=== PATIENT | male | born 1930 | race Caucasian/White ===

== ENCOUNTER 2017-08-23 11:10 | Inpatient (IN) | payer MEDICARE ==
[~2017-08-23] VITALS: Ht 180.3 cm; Wt 94.8 kg
[2017-08-23] VITALS (14 sets, daily range): BP systolic 151–232; BP diastolic 82–123; PULSE 67–88; RESP 16–18; TEMP 97.7–98.4; O2SAT 95–100
[2017-08-23] MEDS ORDERED: SODIUM CHLORIDE 0.9% FLUSH 10 ML FLUSH IVF PRN (11:45)
[2017-08-23] MEDS ORDERED: NITROGLYCERIN 2% OINT 1 GM PACKET TOP ONE (11:45)
[2017-08-23] MEDS ORDERED: ASPIRIN 81 MG CHEW TAB CHEW ONE (11:45)
--- NOTE | 2017-08-23 11:48 | PD ---
HPI Chief Complaint: Respiratory Distress Time Seen by Provider: 11:38 Travel History International Travel<30 days: No Contact w/Intl Traveler<30days: No Traveled to known affect area: No History of Present Illness HPI 87-year-old male with history of hypercholesterolemia, hypertension, A. fib, currently only taking aspirin I choice because he reports that Coumadin did not work and he did not like Eliquis, presents emergency department for evaluation of shortness of breath. Patient states he initially started having an episode of shortness of breath a week ago. It seemed to be both at rest and with activity. It did subside. It occurred again throughout the week, he did go to his primary care provider. He was advised that he is lung sounds were clear and that he likely had something upper respiratory. He was advised to drink lemon water. However last evening he developed this shortness of breath again. It is associated by light substernal pressure pressure patient attributes this to him just feeling short of breath. He denies any significant pain. He has not been recently ill. He denies any history of PE or DVT. He has not had any recent travel. Patient does not currently have a military science teacher. He states he did have a stress test about 25 years ago when he had "something wrong with his heart." He has no other symptoms to report at this time. [facility] Past Medical History Atrial Fibrillation: Yes Hypertension: Yes Social History Alcohol Use: No Tobacco Use: No Substance Use: No Allergies-Medications (Allergen,Severity, Reaction): Coded Allergies: No Known Allergies (Unverified , 08/23/17) Review of Systems Except as stated in HPI: all other systems reviewed are Neg Physical Exam Narrative GENERAL: Well-nourished male patient, sitting up in bed, appears in no acute distress however patient does seem mildly short of breath when talking with me. SKIN: Focused skin assessment warm/dry. HEAD: Atraumatic. Normocephalic. EYES: Pupils equal and round. No scleral icterus. No injection or drainage. ENT: No nasal bleeding or discharge. Mucous membranes pink and moist. NECK: Trachea midline. No JVD. CARDIOVASCULAR: Regular rate and rhythm. RESPIRATORY: No accessory muscle use. Clear to auscultation. Breath sounds equal bilaterally. GASTROINTESTINAL: Abdomen soft, non-tender, nondistended. Hepatic and splenic margins not palpable. MUSCULOSKELETAL: No obvious deformities. No clubbing. No cyanosis. No edema. NEUROLOGICAL: Awake and alert. No obvious cranial nerve deficits. Motor grossly within normal limits. Normal speech. PSYCHIATRIC: Appropriate mood and affect; insight and judgment normal. Data Data Last Documented VS Vital Signs Date Time Temp Pulse Resp B/P (MAP) Pulse Ox O2 Delivery O2 Flow Rate FiO2 08/23/17 12:43 76 232/112 (152) 08/23/17 12:42 17 08/23/17 12:16 96 Room Air 08/23/17 11:30 2.00 08/23/17 11:26 98.4 Orders Orders Electrocardiogram (08/23/17 11:45) Ckmb (Isoenzyme) Profile (08/23/17 11:45) Complete Blood Count With Diff (08/23/17 11:45) Comprehensive Metabolic Panel (08/23/17 11:45) Magnesium (Mg) (08/23/17 11:45) Prothrombin Time / Inr (Pt) (08/23/17 11:45) Act Partial Throm Time (Ptt) (08/23/17 11:45) Troponin I (08/23/17 11:45) Ecg Monitoring (08/23/17 11:45) Bilateral Bp Monitoring (08/23/17 11:45) Iv Access Insert/Monitor (08/23/17 11:45) Oximetry (08/23/17 11:45) Oxygen Administration (08/23/17 11:45) Nitroglycerin 2% Oint (Nitroglycerin 2% (08/23/17 11:45) Sodium Chloride 0.9% Flush (Ns Flush) (08/23/17 11:45) Chest, Pa & Lat (08/23/17 11:45) Aspirin Chew (Aspirin Chew) (08/23/17 11:45) Heparin Inj (Heparin Inj) (08/23/17 18:45) Heparin Inj (Heparin Inj) (08/23/17 18:45) Heparin-D5w 25,000 U/250 Ml (Heparin-D5w (08/23/17 12:45) Cbc No Diff, Includes Plts (08/26/17 06:00) Act Partial Throm Time (Ptt) (08/23/17 19:39) Occult Blood (Hemoccult) Stool (08/23/17 12:39) Nitroglycerin-D5w 50 Mg/250 Ml (Nitrogly (08/23/17 12:45) Consult Cardiology (08/23/17 12:55) Labs Laboratory Tests Test 08/23/17 11:00 White Blood Count 7.2 TH/MM3 Red Blood Count 4.30 MIL/MM3 Hemoglobin 13.6 GM/DL Hematocrit 40.4 % Mean Corpuscular Volume 93.7 FL Mean Corpuscular Hemoglobin 31.6 PG Mean Corpuscular Hemoglobin Concent 33.8 % Red Cell Distribution Width 14.5 % Platelet Count 216 TH/MM3 Mean Platelet Volume 10.1 FL Neutrophils (%) (Auto) 71.1 % Lymphocytes (%) (Auto) 16.7 % Monocytes (%) (Auto) 9.6 % Eosinophils (%) (Auto) 2.2 % Basophils (%) (Auto) 0.4 % Neutrophils # (Auto) 5.1 TH/MM3 Lymphocytes # (Auto) 1.2 TH/MM3 Monocytes # (Auto) 0.7 TH/MM3 Eosinophils # (Auto) 0.2 TH/MM3 Basophils # (Auto) 0.0 TH/MM3 CBC Comment DIFF FINAL Differential Comment Prothrombin Time 10.7 SEC Prothromb Time International Ratio 1.1 RATIO Activated Partial Thromboplast Time 26.3 SEC Blood Urea Nitrogen 12 MG/DL Creatinine 0.78 MG/DL Random Glucose 93 MG/DL Total Protein 7.4 GM/DL Albumin 3.9 GM/DL Calcium Level 8.6 MG/DL Magnesium Level 2.6 MG/DL Alkaline Phosphatase 56 U/L Aspartate Amino Transf (AST/SGOT) 17 U/L Alanine Aminotransferase (ALT/SGPT) 21 U/L Total Bilirubin 0.6 MG/DL Sodium Level 139 MEQ/L Potassium Level 4.1 MEQ/L Chloride Level 104 MEQ/L Carbon Dioxide Level 25.7 MEQ/L Anion Gap 9 MEQ/L Estimat Glomerular Filtration Rate 115 ML/MIN Total Creatine Kinase 88 U/L Troponin I 0.16 NG/ML MDM Medical Decision Making Medical Screen Exam Complete: Yes Emergency Medical Condition: Yes Medical Record Reviewed: Yes Differential Diagnosis ACS versus CHF versus pneumonia versus bronchitis versus PE Narrative Course 87-year-old male presents emergency department for evaluation of a shortness of breath with a very light substernal chest pressure. Patient appears nontoxic. He is quite hypertensive here in the emergency department. 1 inch Nitropaste applied. EKG is complete and reviewed by my attending physician. Laboratory Tests Test 08/23/17 11:00 White Blood Count 7.2 TH/MM3 Red Blood Count 4.30 MIL/MM3 Hemoglobin 13.6 GM/DL Hematocrit 40.4 % Mean Corpuscular Volume 93.7 FL Mean Corpuscular Hemoglobin 31.6 PG Mean Corpuscular Hemoglobin Concent 33.8 % Red Cell Distribution Width 14.5 % Platelet Count 216 TH/MM3 Mean Platelet Volume 10.1 FL Neutrophils (%) (Auto) 71.1 % Lymphocytes (%) (Auto) 16.7 % Monocytes (%) (Auto) 9.6 % Eosinophils (%) (Auto) 2.2 % Basophils (%) (Auto) 0.4 % Neutrophils # (Auto) 5.1 TH/MM3 Lymphocytes # (Auto) 1.2 TH/MM3 Monocytes # (Auto) 0.7 TH/MM3 Eosinophils # (Auto) 0.2 TH/MM3 Basophils # (Auto) 0.0 TH/MM3 CBC Comment DIFF FINAL Differential Comment Prothrombin Time 10.7 SEC Prothromb Time International Ratio 1.1 RATIO Activated Partial Thromboplast Time 26.3 SEC Blood Urea Nitrogen 12 MG/DL Creatinine 0.78 MG/DL Random Glucose 93 MG/DL Total Protein 7.4 GM/DL Albumin 3.9 GM/DL Calcium Level 8.6 MG/DL Magnesium Level 2.6 MG/DL Alkaline Phosphatase 56 U/L Aspartate Amino Transf (AST/SGOT) 17 U/L Alanine Aminotransferase (ALT/SGPT) 21 U/L Total Bilirubin 0.6 MG/DL Sodium Level 139 MEQ/L Potassium Level 4.1 MEQ/L Chloride Level 104 MEQ/L Carbon Dioxide Level 25.7 MEQ/L Anion Gap 9 MEQ/L Estimat Glomerular Filtration Rate 115 ML/MIN Total Creatine Kinase 88 U/L Troponin I 0.16 NG/ML Last Impressions Chest X-Ray 08/23/17 1145 Signed Impressions: CONCLUSION: 1. Small left pleural effusion. 2. Cardiac megaly. 3. Minimal central pulmonary vascular congestion. 4. Degenerative changes throughout the thoracic spine. Troponin is elevated at 0.16. I discussed the patient with my attending who is also assessed the patient and reviewed the findings. Patient remains hypertensive with systolic greater than 220 and diastolic greater than 110. He states he is no longer having that pressure. We will start him on a nitro drip as well as heparin drip. Patient will be admitted to the CICU with the consult placed cardiology. Plan is discussed with the patient and he is in agreement with this plan of care. Diagnosis Primary Impression: NSTEMI (non-ST elevated myocardial infarction) Additional Impressions: Dyspnea Qualified Codes: R06.00 - Dyspnea, unspecified Hypertension Qualified Codes: I10 - Essential (primary) hypertension Admitting Information Admitting Physician Requests: Admit Condition: Stable Montserrat García Aug 23, 2017 11:48
[2017-08-23 12:09] LABS: AUTOMATED NEUTROPHIL # 5.1 TH/MM3 (1.8-7.7); BASOPHIL % 0.4 % (0.0-2.0); EOSINOPHIL # 0.2 TH/MM3 (0-0.4); EOSINOPHIL % 2.2 % (0.0-4.0); HEMATOCRIT 40.4 % (39.0-51.0); HEMOGLOBIN 13.6 GM/DL (13.0-17.0); LYMPH % 16.7 % (9.0-44.0); LYMPHOCYTE # 1.2 TH/MM3 (1.0-4.8); MEAN CELL VOLUME 93.7 FL (80.0-100.0); MEAN CORPUSCULAR HEMOGLOBIN 31.6 PG (27.0-34.0); MEAN CORPUSCULAR HGB CONC 33.8 % (32.0-36.0); MEAN PLATELET VOLUME 10.1 FL (7.0-11.0); MONO % 9.6 % (0.0-8.0); MONOCYTE # 0.7 TH/MM3 (0-0.9); NEUT % 71.1 % (16.0-70.0); PLATELET COUNT 216 TH/MM3 (150-450); RED CELL DISTRIBUTION WIDTH 14.5 % (11.6-17.2); WHITE BLOOD COUNT 7.2 TH/MM3 (4.0-11.0)
[2017-08-23 12:18] LABS: INTERNATIONAL NORMALIZED RATIO 1.1 RATIO; PROTHROMBIN TIME - PATIENT 10.7 SEC (9.8-11.6)
[2017-08-23 12:29] LABS: ALBUMIN 3.9 GM/DL (3.4-5.0); ALT (GPT) 21 U/L (12-78); AST (GOT) 17 U/L (15-37); BICARBONATE 25.7 MEQ/L (21.0-32.0); BLOOD UREA NITROGEN 12 MG/DL (7-18); CALCIUM 8.6 MG/DL (8.5-10.1); CHLORIDE 104 MEQ/L (98-107); CREATININE 0.78 MG/DL (0.60-1.30); GLOMERULAR FILTRATION RATE 115 ML/MIN (>89); GLUCOSE,RANDOM 93 MG/DL (74-106); MAGNESIUM 2.6 MG/DL (1.5-2.5); SODIUM (NA) 139 MEQ/L (136-145)
[2017-08-23 12:33] LABS: ALKALINE PHOSPHATASE 56 U/L (45-117); TOTAL BILIRUBIN ADULT 0.6 MG/DL (0.2-1.0); TOTAL PROTEIN 7.4 GM/DL (6.4-8.2); TROPONIN I 0.16 NG/ML (0.02-0.05)
[2017-08-23] MEDS ORDERED: NITROGLYCERIN-D5W 50 MG/250 ML 250 ML IV PRN (12:45)
--- NOTE | 2017-08-23 12:49 | PD ---
Physical Exam Date Seen by Provider: Aug 23, 2017 Narrative This patient presents with a chief complaint of dyspnea. He states that he had an episode of dyspnea a week ago but that it spontaneously improved. The dyspnea recurred last night. Data Data Last Documented VS Vital Signs Date Time Temp Pulse Resp B/P (MAP) Pulse Ox O2 Delivery O2 Flow Rate FiO2 08/23/17 12:16 77 17 232/112 (152) 96 Room Air 08/23/17 11:26 98.4 Orders Orders Electrocardiogram (08/23/17 11:45) Ckmb (Isoenzyme) Profile (08/23/17 11:45) Complete Blood Count With Diff (08/23/17 11:45) Comprehensive Metabolic Panel (08/23/17 11:45) Magnesium (Mg) (08/23/17 11:45) Prothrombin Time / Inr (Pt) (08/23/17 11:45) Act Partial Throm Time (Ptt) (08/23/17 11:45) Troponin I (08/23/17 11:45) Ecg Monitoring (08/23/17 11:45) Bilateral Bp Monitoring (08/23/17 11:45) Iv Access Insert/Monitor (08/23/17 11:45) Oximetry (08/23/17 11:45) Oxygen Administration (08/23/17 11:45) Nitroglycerin 2% Oint (Nitroglycerin 2% (08/23/17 11:45) Sodium Chloride 0.9% Flush (Ns Flush) (08/23/17 11:45) Chest, Pa & Lat (08/23/17 11:45) Aspirin Chew (Aspirin Chew) (08/23/17 11:45) Labs Laboratory Tests Test 08/23/17 11:00 White Blood Count 7.2 TH/MM3 Red Blood Count 4.30 MIL/MM3 Hemoglobin 13.6 GM/DL Hematocrit 40.4 % Mean Corpuscular Volume 93.7 FL Mean Corpuscular Hemoglobin 31.6 PG Mean Corpuscular Hemoglobin Concent 33.8 % Red Cell Distribution Width 14.5 % Platelet Count 216 TH/MM3 Mean Platelet Volume 10.1 FL Neutrophils (%) (Auto) 71.1 % Lymphocytes (%) (Auto) 16.7 % Monocytes (%) (Auto) 9.6 % Eosinophils (%) (Auto) 2.2 % Basophils (%) (Auto) 0.4 % Neutrophils # (Auto) 5.1 TH/MM3 Lymphocytes # (Auto) 1.2 TH/MM3 Monocytes # (Auto) 0.7 TH/MM3 Eosinophils # (Auto) 0.2 TH/MM3 Basophils # (Auto) 0.0 TH/MM3 CBC Comment DIFF FINAL Differential Comment Prothrombin Time 10.7 SEC Prothromb Time International Ratio 1.1 RATIO Activated Partial Thromboplast Time 26.3 SEC Blood Urea Nitrogen 12 MG/DL Creatinine 0.78 MG/DL Random Glucose 93 MG/DL Total Protein 7.4 GM/DL Albumin 3.9 GM/DL Calcium Level 8.6 MG/DL Magnesium Level 2.6 MG/DL Alkaline Phosphatase 56 U/L Aspartate Amino Transf (AST/SGOT) 17 U/L Alanine Aminotransferase (ALT/SGPT) 21 U/L Total Bilirubin 0.6 MG/DL Sodium Level 139 MEQ/L Potassium Level 4.1 MEQ/L Chloride Level 104 MEQ/L Carbon Dioxide Level 25.7 MEQ/L Anion Gap 9 MEQ/L Estimat Glomerular Filtration Rate 115 ML/MIN Total Creatine Kinase 88 U/L Troponin I 0.16 NG/ML MDM Supervised Visit with FLETCHER: Yes Interpretation(s) EKG shows a normal sinus rhythm with ischemic changes. Differential Diagnosis Differential diagnosis of dyspnea includes but is not limited to congestive heart failure, pneumonia, wheezing, pneumothorax, pulmonary embolism Narrative Course I, Dr. Page, have reviewed the advance practice practitioner's documentation and am in agreement, met with the patient face to face, made the diagnosis, and the medical decision making was done by me. *My assessment and Findings: Very pleasant gentleman who is awake and alert and does not appear to be in any acute distress. He is hypertensive with a diastolic of 112. CBC & BMP Diagram 08/23/17 11:00 Total Protein 7.4, Albumin 3.9, Calcium Level 8.6, Magnesium Level 2.6 H, Alkaline Phosphatase 56, Aspartate Amino Transf (AST/SGOT) 17, Alanine Aminotransferase (ALT/SGPT) 21, Total Bilirubin 0.6 Troponin is 0.16. A heparin bolus and drip has been ordered. He has already had aspirin. He has Nitropaste but that will be changed to a nitro drip. The nitro drip will be titrated for blood pressure. Cardiology will be consulted Please see Montserrat García, DNP's note for a more detailed H&P, final diagnosis and disposition Critical Care Narrative Aggregate critical care time was 30 minutes. Time to perform other separately billable procedures was not included in the critical care time. My time did not include minutes spent treating any other patients simultaneously or on activities that did not directly contribute to the patient's treatment. The services I provided to this patient were to treat and/or prevent clinically significant deterioration due to non-STEMI I provided critical care services requiring my management, as noted below: Chart data review, documentation time, medication orders and management, vital sign assessments/reviewing monitor data, ordering and reviewing lab tests, ordering and interpreting/reviewing x-rays and diagnostic studies, care of the patient and discussion of the patient with the admitting physicians Diagnosis Primary Impression: NSTEMI (non-ST elevated myocardial infarction) Admitting Information Admitting Physician Requests: Admit Condition: Stable Yumiko Page MD Aug 23, 2017 12:49
--- NOTE | 2017-08-23 12:56 | RADRPT ---
EXAM DATE: 08/23/2017 12:03 PM EDT AGE/SEX: 87 years / Male INDICATIONS: Short of breath. CLINICAL DATA: This is the patient's initial encounter. Patient reports that signs and symptoms have been present for 1 week and indicates a pain score of 0/10. MEDICAL/SURGICAL HISTORY: . atrial fibrillation. None. COMPARISON: No prior exams available for comparison. FINDINGS: A small left pleural effusion is noted. The heart is enlarged. Minimal central pulmonary vascular con gestion is noted. Degenerative changes are noted throughout the thoracic spine. CONCLUSION: 1. Small left pleural effusion. 2. Cardiac megaly. 3. Minimal central pulmonary vascular congestion. 4. Degenerative changes throughout the thoracic spine. Electronically signed by: Fabrice Cortez MD 08/23/2017 12:55 PM EDT
[2017-08-23] MEDS ORDERED: FUROSEMIDE 40 MG/4 ML VIAL IV PUSH ONE (13:15)
[2017-08-23] MEDS: HEPARIN-D5W 25,000 U/250 ML 250 ML IV PRN (13:20)
[2017-08-23] MEDS ORDERED: LABETALOL HCL 100 MG/20 ML VIAL IV PUSH STA (13:26)
--- NOTE | 2017-08-23 13:50 | HHI.HP ---
HPI Service [facility] Hospitalists Primary Care Physician Dr. Lima Flores Admission Diagnosis NSTEMI v hypertensive urgency Chief Complaint: SOB, chest pressure Travel History International Travel<30 Days: No Contact w/Intl Traveler <30 Da: No Traveled to Known Affected Are: No History of Present Illness Mr. Ramos is an 87 y/o male with HTN, hyperlipidemia, hypothyroidism and A. fib. He is currently only taking aspirin for his A. fib because he reports that Coumadin did not work and he did not like Eliquis so he stopped taking it. He presented to the ED at [facility] on 08/23/17 for evaluation of shortness of breath. Patient reports that he started having increased shortness of breath about a week ago. It seemed to be both with activity and at rest. He states that he called his PCP office and spoke with some one and he states that he was told to drink lemon water. It reportedly improved somewhat but then last night he felt that the SOB seemed to return and he had some associated light substernal chest pressure. He was unable to lie flat last night and he has noted some LE edema. He was seen at [facility] this morning and his BP was significantly elevated at 206/130, decreased O2 sats with activity to 88% and had a CXR which noted cardiac silhouette appears enlarged due to marked pectus excavatum deformity, atherosclerosis of the thoracic aorta, mild central vascular prominence, increased density in the retrocardiac space left side as well as small effusions , possibly suggestive of compressive atelectasis vs. pneumonitis at the left lung base vs. some mild interstitial edema and mild failure. Pt was recommended to go to the ED for further evaluation. In the ED his BP continued to be significantly elevated and he was started on a Nitro drip. His labs revealed an elevation in his troponin I of 0.16 and he was started on a Heparin bolus and drip. Cardiology has been consulted in the ED as well. He denies any significant pain. He has not been recently ill. He denies any history of PE or DVT. He has not had any recent travel. Pt reports that for the last year he has had been getting up about 4-5 times per night to urinate and having some dribbling at the end of urination. He diagnosed himself with an enlarged prostate and has been taking an OTC medication for the last few months which he thinks has helped. He has not discussed these issues with his PCP. Review of Systems Constitutional: DENIES: Fever, Chills Eyes: DENIES: Vision loss Ears, nose, mouth, throat: DENIES: Hearing loss Respiratory: COMPLAINS OF: Shortness of breath, DENIES: Cough Cardiovascular: COMPLAINS OF: Dyspnea on Exertion, Lower Extremity Edema, DENIES: Chest pain, Palpitations Past Family Social History Past Medical History HTN Hyperlipidemia Hypothyroidism Atrial fibrillation, paroxysmal Vitamin D deficiency Asthma 2D echo (01/13/2016): - Estimated EF 50-55% - LA [id number] dilated - Mild mitral valve regurg - Aortic valve sclerosis, [id number]-av-moavcwri aortic valve stenosis - Mild tricuspid valve regurg - Estimated PA pressure 38.9mmHg - Small pericardial effusion present, primarily located posteriorly Past Surgical History Inguinal hernia repair Nasal reconstruction in the s Reported Medications -Simvastatin 20 Mg PO DAILY -Nifedipine 30 Mg PO DAILY -Lisinopril 40 Mg PO DAILY -ASA 81 Mg PO BID Pt is prescribed Eliquis but is not taking it, took it for about 1 month, stopped it about 1 year ago Allergies: Coded Allergies: No Known Allergies (Unverified , 08/23/17) Family History Noncontributory Social History Hx of tobacco use, quit over 30 years ago, pt smoked for about 30 years. Occasional alcohol use, 1-2 glassed of wine with dinner daily. He drank more heavily in the past. Physical Exam Vital Signs Vital Signs Date Time Temp Pulse Resp B/P (MAP) Pulse Ox O2 Delivery O2 Flow Rate FiO2 08/23/17 13:22 77 17 203/94 (130) 100 Nasal Cannula 2.00 08/23/17 12:43 76 232/112 (152) 08/23/17 12:42 76 17 228/123 (158) 08/23/17 12:16 77 17 232/112 (152) 96 Room Air 08/23/17 11:30 100 Nasal Cannula 08/23/17 11:30 100 2.00 08/23/17 11:30 78 95 Room Air 08/23/17 11:26 98.4 76 17 228/123 (158) Physical Exam GENERAL: This is a well-nourished, well-developed patient, in no apparent distress. SKIN: No rashes, ecchymoses or lesions. Cool and dry. HEENT: Atraumatic. Normocephalic. No temporal or scalp tenderness. No scleral icterus. Airway patent. NECK: Trachea midline, supple, nontender. CARDIO: Regular, 3/6 systolic ejection murmur on LSB RESP: Bilateral basilar crackles ABD: Abdomen soft, non-tender, nondistended. No hepato-splenomegaly, or palpable masses. No guarding. EXT: Bilateral LE pitting edema to the knees. NEURO: Awake and alert. Motor and sensory grossly within normal limits. Normal speech. Laboratory Laboratory Tests Test 08/23/17 11:00 White Blood Count 7.2 Red Blood Count 4.30 Hemoglobin 13.6 Hematocrit 40.4 Mean Corpuscular Volume 93.7 Mean Corpuscular Hemoglobin 31.6 Mean Corpuscular Hemoglobin Concent 33.8 Red Cell Distribution Width 14.5 Platelet Count 216 Mean Platelet Volume 10.1 Neutrophils (%) (Auto) 71.1 Lymphocytes (%) (Auto) 16.7 Monocytes (%) (Auto) 9.6 Eosinophils (%) (Auto) 2.2 Basophils (%) (Auto) 0.4 Neutrophils # (Auto) 5.1 Lymphocytes # (Auto) 1.2 Monocytes # (Auto) 0.7 Eosinophils # (Auto) 0.2 Basophils # (Auto) 0.0 CBC Comment DIFF FINAL Differential Comment Prothrombin Time 10.7 Prothromb Time International Ratio 1.1 Activated Partial Thromboplast Time 26.3 Blood Urea Nitrogen 12 Creatinine 0.78 Random Glucose 93 Total Protein 7.4 Albumin 3.9 Calcium Level 8.6 Magnesium Level 2.6 Alkaline Phosphatase 56 Aspartate Amino Transf (AST/SGOT) 17 Alanine Aminotransferase (ALT/SGPT) 21 Total Bilirubin 0.6 Sodium Level 139 Potassium Level 4.1 Chloride Level 104 Carbon Dioxide Level 25.7 Anion Gap 9 Estimat Glomerular Filtration Rate 115 Total Creatine Kinase 88 Troponin I 0.16 Result Diagram: 08/23/17 1100 08/23/17 1100 Imaging Last Impressions Chest X-Ray 08/23/17 1145 Signed Impressions: CONCLUSION: 1. Small left pleural effusion. 2. Cardiac megaly. 3. Minimal central pulmonary vascular congestion. 4. Degenerative changes throughout the thoracic spine. Caprini VTE Risk Assessment Caprini VTE Risk Assessment: Mod/High Risk (score >= 2) Caprini Risk Assessment Model Point Value = 1 Point Value = 2 Point Value = 3 Point Value = 5 Age 41-60 Minor surgery BMI > 25 kg/m2 Swollen legs Varicose veins or History of unexplained or recurrent spontaneous Oral contraceptives or hormone replacement Sepsis (< 1 month) Serious lung disease, including pneumonia (< 1 month) Abnormal pulmonary function Acute myocardial infarction Congestive heart failure (< 1 month) History of inflammatory bowel disease Medical patient at bed rest Age 61-74 Arthroscopic surgery Major open surgery (> 45 min) Laparoscopic surgery (> 45 min) Malignancy Confined to bed (> 72 hours) Immobilizing plaster cast Central venous access Age >= 75 History of VTE Family history of VTE Factor V Leiden Prothrombin [id number] Lupus anticoagulant Anticardiolipin antibodies Elevated serum homocysteine Heparin-induced thrombocytopenia Other congenital or acquired thrombophilia Stroke (< 1 month) Elective arthroplasty Hip, pelvis, or leg fracture Acute spinal cord injury (< 1 month) Prophylaxis Regimen Total Risk Factor Score Risk Level Prophylaxis Regimen 0-1 Low Early ambulation 2 Moderate Order ONE of the following: *Sequential Compression Device (SCD) *Heparin 5000 units SQ BID 3-4 Higher Order ONE of the following medications: *Heparin 5000 units SQ TID *Enoxaparin/Lovenox 40 mg SQ daily (WT < 150 kg, CrCl > 30 mL/min) *Enoxaparin/Lovenox 30 mg SQ daily (WT < 150 kg, CrCl > 10-29 mL/min) *Enoxaparin/Lovenox 30 mg SQ BID (WT < 150 kg, CrCl > 30 mL/min) AND/OR *Sequential Compression Device (SCD) 5 or more Highest Order ONE of the following medications: *Heparin 5000 units SQ TID (Preferred with Epidurals) *Enoxaparin/Lovenox 40 mg SQ daily (WT < 150 kg, CrCl > 30 mL/min) *Enoxaparin/Lovenox 30 mg SQ daily (WT < 150 kg, CrCl > 10-29 mL/min) *Enoxaparin/Lovenox 30 mg SQ BID (WT < 150 kg, CrCl > 30 mL/min) AND *Sequential Compression Device (SCD) Assessment and Plan Problem List: (1) NSTEMI (non-ST elevated myocardial infarction) ICD Codes: I21.4 - Non-ST elevation (NSTEMI) myocardial infarction Status: Acute Plan: NSTEMI SOB with LE edema, likely secondary to CHF HTN, poorly controlled - Pt is an 87 y/o male with HTN, hyperlipidemia, hypothyroidism and paroxysmal A. fib. - He presented to the ED at [facility] on 08/23/17 for evaluation of shortness of breath. Patient reports that he started having increased shortness of breath about a week ago. Last night he felt that the SOB seemed to worsen and he had some associated light substernal chest pressure. He was unable to lie flat last night and he has noted some LE edema. He was seen at [facility] this morning and his BP was significantly elevated at 206/130, decreased O2 sats with activity to 88% and had a CXR which noted cardiac silhouette appears enlarged due to marked pectus excavatum deformity, atherosclerosis of the thoracic aorta, mild central vascular prominence, increased density in the retrocardiac space left side as well as small effusions, possibly suggestive of compressive atelectasis vs. pneumonitis at the left lung base vs. some mild interstitial edema and mild failure. Pt was recommended to go to the ED for further evaluation. - In the ED his BP continued to be significantly elevated and he was started on a Nitro drip. Pts BP currently is 229/107 - His labs revealed an elevation in his troponin I of 0.16 and he was started on a Heparin bolus and drip. - Cardiology has been consulted - Trend CE and EKGs - Check 2D echo - Telemetry - Pt has been seen by [facility] and has been started on Lasix 40mg Q8H, Coreg 6.25 Q12H, Imdur 30mg BID Lisinopril 40mg daily, ASA 81 mg daily and Lipitor - Pt to be weaned off the Nitro drip as BP allows - Supportive care - Pt is on Heparin gtt, labs ordered per protocol Paroxysmal atrial fibrillation - Pt has been taking on ASA as an outpt for anticoagulation - In the past he was on Coumadin and Elquis which he stopped himself. - Currently in NSR with occasional PVCs on telemetry - Cont. telemetry monitoring - Cont. ASA Hyperlipidemia - Cont. statin (2) Dyspnea ICD Codes: R06.00 - Dyspnea, unspecified Status: Acute (3) Paroxysmal A-fib ICD Codes: I48.0 - Paroxysmal atrial fibrillation (4) HTN (hypertension) ICD Codes: I10 - Essential (primary) hypertension (5) Hyperlipidemia ICD Codes: E78.5 - Hyperlipidemia, unspecified Physician Certification 2 Midnight Certification Type: Admission for Inpatient Services Order for Inpatient Services The services are ordered in accordance with Medicare regulations or non- Medicare payer requirements, as applicable. In the case of services not specified as inpatient-only, they are appropriately provided as inpatient services in accordance with the 2-midnight benchmark. Estimated LOS (days): 3 3 days is the estimated time the patient will need to remain in the hospital, assuming treatment plan goals are met and no additional complications. Post-Hospital Plan: Not yet determined Problem Qualifiers (1) Dyspnea: Qualified Codes: R06.00 - Dyspnea, unspecified Christine Marroquin Aug 23, 2017 13:50
--- NOTE | 2017-08-23 14:12 | PD.CONS ---
HPI Consult Requested By Dr Yumiko Page MD Reason for Consult dyspnea, elevated troponin Primary Care Physician Liam Flores MD History of Present Illness 87 yo gentleman with history of PAF not on chronic anticoagulation therapy, HTN , HLD presents to ER with 1 week of intermittent dyspnea. No chest pain, palpitations, syncope or sensation of rapid HR. Noted increasing LE edema and orthopnea without PND. He is active at baseline, completes a 1 hour walk most days but hasn't been able to this past week due to dyspnea. He does not check his ambulatory vitals. When he presented to the ER, BP noted at 232/112 with HR 77 in NSR. ECG is nonischemic. CXR shows pulmonary vascular congestion. Labs reveal mildly elevated troponin of 0.16 with CK 88. Cr 0.78, K+4.1. He was administered lasix 40mg iv x 1, ASA 81mg, NTG paste 1", and started on heparin gtt per [facility] protocol. Current BP 203/94, HR 75bpm. Intermittent rare PVCs on tele. Review of Systems 10-pt ros negative other than noted in HPI Past Family Social History Allergies: Coded Allergies: No Known Allergies (Unverified , 08/23/17) Past Medical History HTN HLD PAF Past Surgical History denies Active Ordered Medications Current Medications Medications (Trade) Dose Ordered Sig/Arnoldo Route Start Time Stop Time Status Last Admin (NS Flush) 2 ml UNSCH PRN IVF 08/23/17 11:45 (Heparin Inj) 5,000 units UNSCH PRN IV 08/23/17 18:45 (Heparin Inj) 2,500 units UNSCH PRN IV 08/23/17 18:45 Heparin Sodium/ Dextrose 250 ml @ 10 mls/hr TITRATE PRN IV 08/23/17 12:45 08/23/17 13:20 Nitroglycerin/ Dextrose 250 ml @ 1.5 mls/hr TITRATE PRN IV 08/23/17 12:45 Family History noncontributory Social History former smoker age 21 to mid-30s. exercises almost daily. no alcohol Physical Exam Vital Signs Vital Signs Date Time Temp Pulse Resp B/P (MAP) Pulse Ox O2 Delivery O2 Flow Rate FiO2 08/23/17 13:22 77 17 203/94 (130) 100 Nasal Cannula 2.00 08/23/17 12:43 76 232/112 (152) 08/23/17 12:42 76 17 228/123 (158) 08/23/17 12:16 77 17 232/112 (152) 96 Room Air 08/23/17 11:30 100 Nasal Cannula 08/23/17 11:30 100 2.00 08/23/17 11:30 78 95 Room Air 08/23/17 11:26 98.4 76 17 228/123 (158) Physical Exam Gen: AOx3 pleasant and comfortable HEENT: NCAT, no conjuntival injection Neck: supple, JVP elevated to 12 cm CV: regular rate and rhythm, +S1/S2, 1/6 fabrizio Chest: bibasilar faint crackles, no wheeze or rhonci Abd: soft, nontender Ext: 2+ bl LE edema, no varicose veins Neuro: nonfocal. moves all extremities Laboratory Laboratory Tests Test 08/23/17 11:00 White Blood Count 7.2 Red Blood Count 4.30 Hemoglobin 13.6 Hematocrit 40.4 Mean Corpuscular Volume 93.7 Mean Corpuscular Hemoglobin 31.6 Mean Corpuscular Hemoglobin Concent 33.8 Red Cell Distribution Width 14.5 Platelet Count 216 Mean Platelet Volume 10.1 Neutrophils (%) (Auto) 71.1 Lymphocytes (%) (Auto) 16.7 Monocytes (%) (Auto) 9.6 Eosinophils (%) (Auto) 2.2 Basophils (%) (Auto) 0.4 Neutrophils # (Auto) 5.1 Lymphocytes # (Auto) 1.2 Monocytes # (Auto) 0.7 Eosinophils # (Auto) 0.2 Basophils # (Auto) 0.0 CBC Comment DIFF FINAL Differential Comment Prothrombin Time 10.7 Prothromb Time International Ratio 1.1 Activated Partial Thromboplast Time 26.3 Blood Urea Nitrogen 12 Creatinine 0.78 Random Glucose 93 Total Protein 7.4 Albumin 3.9 Calcium Level 8.6 Magnesium Level 2.6 Alkaline Phosphatase 56 Aspartate Amino Transf (AST/SGOT) 17 Alanine Aminotransferase (ALT/SGPT) 21 Total Bilirubin 0.6 Sodium Level 139 Potassium Level 4.1 Chloride Level 104 Carbon Dioxide Level 25.7 Anion Gap 9 Estimat Glomerular Filtration Rate 115 Total Creatine Kinase 88 Troponin I 0.16 Result Diagram: 08/23/17 1100 08/23/17 1100 Imaging Last Impressions Chest X-Ray 08/23/17 1145 Signed Impressions: CONCLUSION: 1. Small left pleural effusion. 2. Cardiac megaly. 3. Minimal central pulmonary vascular congestion. 4. Degenerative changes throughout the thoracic spine. Assessment and Plan Assessment and Plan 87 yo gentleman with HTN, HLD, PAF presents with 1 week of dyspnea, LE edema, orthopnea. Acute decompensated CHF, no EF on record Elevated troponin: NSTEMI type I vs type II demand ischemia with HTN emergency Hypertension Hyperlipidemia: (05/23/17: TCC 143, TG 131, HDL 43, LDL 74 on Simvastatin 20mg daily) Hx of PAF in NSR, patient previously declined chronic anticoagulation therapy and stopped coumadin then eliquis. Rec: -lasix 40iv q8hrs. -maintain K+ > 4, mg >2 -ASA 81 mg daily, Lisinopril 40mg daily, Simvastatin 20mg daily -Labetalol 10mg IV x 1 now in ER, then start coreg 6.25mg bid, Imdur 30mg bid with holding parameters then d/c Nitro paste tomorrow. -continue to trend cardiac biomarkers to peak -continue heparin gtt -NPO after MN for possible LHC tomorrow. -check echocardiogram (Home meds from [facility] EMR: Lisinopril 40mg daily, Nifedipine ER 30mg daily, Simvastatin 20mg daily, Eliquis 5mg bid (patient denies taking), multiple supplements.) Alejandro Flores DO Aug 23, 2017 14:12
--- NOTE | 2017-08-23 15:41 | EKG ---
Date Performed: 08/23/2017 Time Performed: 11:10:11 PTAGE: 87 years EKG: POSSIBLE ATRIAL FIBRILLATION NONSPECIFIC ST & T-WAVE ABNORMALITY ABNORMAL RHYTHM ECG NO PREVIOUS TRACING DOCTOR: Milind Park Interpretating Date/Time 08/23/2017 15:39:57
[2017-08-23] MEDS: LISINOPRIL 20 MG TAB PO SCH (16:19)
[2017-08-23] MEDS ORDERED: cloNIDine HCL 0.1 MG TAB PO PRN (17:15)
[2017-08-23 17:58] LABS: TROPONIN I 0.19 NG/ML (0.02-0.05)
[2017-08-23] MEDS ORDERED: HEPARIN SODIUM - IV 10,000 UNITS/10 ML VIAL IV PRN ×2 (18:45)
[2017-08-23] MEDS ORDERED: VITA-142 PO (19:18)
[2017-08-23] MEDS ORDERED: TURM500C3 PO (19:18)
[2017-08-23] MEDS ORDERED: LUTE20CA PO (19:18)
[2017-08-23] MEDS ORDERED: BIOT5TAB PO (19:18)
[2017-08-23] MEDS ORDERED: GARL1TAB PO (19:18)
[2017-08-23] MEDS ORDERED: ECHI400C2 PO (19:18)
[2017-08-23] MEDS ORDERED: SAWCAP2 PO (19:18)
[2017-08-23] MEDS ORDERED: CITR500T PO (19:18)
[2017-08-23] MEDS ORDERED: IODI150T PO (19:18)
[2017-08-23] MEDS ORDERED: NETTLE LEAF PO (19:18)
[2017-08-23] MEDS ORDERED: FOLI400T PO (19:18)
[2017-08-23] MEDS ORDERED: FERR325T18 PO (19:18)
[2017-08-23] MEDS ORDERED: VITA500T4 PO (19:18)
[2017-08-23] MEDS ORDERED: APIX5TAB PO (19:18)
[2017-08-23] MEDS ORDERED: OMEG100046 PO (19:18)
[2017-08-23] MEDS ORDERED: COMPTAB PO (19:18)
[2017-08-23] MEDS ORDERED: LISI40TA PO (19:18)
[2017-08-23] MEDS ORDERED: ZOCO20TA PO (19:18)
[2017-08-23] MEDS ORDERED: NIFE30TA61 PO (19:18)
[2017-08-23] MEDS ORDERED: CHOL5000 PO (19:18)
[2017-08-23] MEDS ORDERED: CRAN1CAP11 PO (19:18)
[2017-08-23] MEDS ORDERED: MAGN200T PO (19:18)
--- NOTE | 2017-08-23 20:53 | EKG ---
Date Performed: 08/23/2017 Time Performed: 15:20:10 PTAGE: 87 years EKG: ATRIAL FIBRILLATION LEFT AXIS DEVIATION ST/T-WAVE ABNORMALITY, CONSIDER LATERAL ISCHEMIA AB NORMAL ECG PREVIOUS TRACING : 08/23/2017 11.10 No significant change from previous tracing noted. DOCTOR: Milind Park Interpretating Date/Time 08/23/2017 20:52:26
[2017-08-23 21:40] LABS: TROPONIN I 0.17 NG/ML (0.02-0.05)
[2017-08-23] MEDS: CARVEDILOL 6.25 MG TAB PO SCH (21:50)
[2017-08-23] MEDS: ISOSORBIDE MONONITRATE 30 MG CR TAB (IMDUR) PO SCH (21:51)
[2017-08-23] MEDS: FUROSEMIDE 40 MG/4 ML VIAL IV PUSH SCH (21:53)
[2017-08-24] VITALS (26 sets, daily range): BP systolic 132–176; BP diastolic 75–92; PULSE 60–80; RESP 16–18; TEMP 97.6–97.9; O2SAT 93–98
[2017-08-24 05:04] LABS: AUTOMATED NEUTROPHIL # 6.7 TH/MM3 (1.8-7.7); BASOPHIL % 0.3 % (0.0-2.0); EOSINOPHIL # 0.2 TH/MM3 (0-0.4); EOSINOPHIL % 2.6 % (0.0-4.0); HEMATOCRIT 37.5 % (39.0-51.0); HEMOGLOBIN 12.4 GM/DL (13.0-17.0); LYMPH % 13.3 % (9.0-44.0); LYMPHOCYTE # 1.2 TH/MM3 (1.0-4.8); MEAN CELL VOLUME 94.4 FL (80.0-100.0); MEAN CORPUSCULAR HEMOGLOBIN 31.3 PG (27.0-34.0); MEAN CORPUSCULAR HGB CONC 33.2 % (32.0-36.0); MEAN PLATELET VOLUME 9.7 FL (7.0-11.0); MONO % 9.5 % (0.0-8.0); MONOCYTE # 0.9 TH/MM3 (0-0.9); NEUT % 74.3 % (16.0-70.0); PLATELET COUNT 194 TH/MM3 (150-450); RED BLOOD COUNT 3.97 MIL/MM3 (4.50-5.90); RED CELL DISTRIBUTION WIDTH 14.5 % (11.6-17.2)
[2017-08-24 05:31] LABS: ALBUMIN 3.3 GM/DL (3.4-5.0); ALKALINE PHOSPHATASE 50 U/L (45-117); ALT (GPT) 21 U/L (12-78); AST (GOT) 14 U/L (15-37); BICARBONATE 28.7 MEQ/L (21.0-32.0); BLOOD UREA NITROGEN 17 MG/DL (7-18); CALCIUM 8.2 MG/DL (8.5-10.1); CHLORIDE 102 MEQ/L (98-107); CHOLESTEROL 115 MG/DL (120-200); CHOLESTEROL/ HDL RATIO 2.39 RATIO; CREATININE 0.89 MG/DL (0.60-1.30); GLOMERULAR FILTRATION RATE 81 ML/MIN (>89); GLUCOSE,RANDOM 107 MG/DL (74-106); HDL CHOLESTEROL 48.1 MG/DL (40.0-60.0); LDL CHOLESTEROL 53 MG/DL (0-99); SODIUM (NA) 141 MEQ/L (136-145); TOTAL BILIRUBIN ADULT 0.6 MG/DL (0.2-1.0); TOTAL PROTEIN 6.2 GM/DL (6.4-8.2); TRIGLYCERIDES 70 MG/DL (42-150)
[2017-08-24] MEDS ORDERED: POTASSIUM CHLOR 20 MEQ PREMIX 100 ML IV SCH (06:15)
[2017-08-24] MEDS: HEPARIN-D5W 25,000 U/250 ML 250 ML IV PRN (06:39)
[2017-08-24] MEDS: ISOSORBIDE MONONITRATE 30 MG CR TAB (IMDUR) PO SCH ×2 (06:42→21:16)
[2017-08-24] MEDS: FUROSEMIDE 40 MG/4 ML VIAL IV PUSH SCH ×3 (06:42→21:16)
--- NOTE | 2017-08-24 08:23 | PD.CARD.PN ---
Subjective Subjective Remarks improved breathing, "feeling dried out", diuresing well. no chest pain. troponin levels stable. (Karmen Crawford) Subjective Remarks continue diuresis IV q8 symptoms improved [facility] today await echo results cont ACEi and BB (Minor,Tyson Bell MD) Objective Medications Current Medications Medications (Trade) Dose Ordered Sig/Arnoldo Route Start Time Stop Time Status Last Admin (NS Flush) 2 ml UNSCH PRN IVF 08/23/17 11:45 (Heparin Inj) 5,000 units UNSCH PRN IV 08/23/17 18:45 (Heparin Inj) 2,500 units UNSCH PRN IV 08/23/17 18:45 08/23/17 21:53 Heparin Sodium/ Dextrose 250 ml @ 10 mls/hr TITRATE PRN IV 08/23/17 12:45 08/24/17 06:39 Nitroglycerin/ Dextrose 250 ml @ 1.5 mls/hr TITRATE PRN IV 08/23/17 12:45 (Coreg) 6.25 mg Q12HR PO 08/23/17 21:00 08/23/17 21:50 (Prinivil) 40 mg DAILY PO 08/23/17 14:15 08/23/17 16:19 (Imdur) 30 mg BID@0700,2100 PO 08/23/17 21:00 08/24/17 06:42 (Lasix Inj) 40 mg Q8HR IV PUSH 08/23/17 22:00 08/24/17 06:42 (Ecotrin Ec) 81 mg DAILY PO 08/24/17 09:00 (Lipitor) 20 mg DAILY PO 08/24/17 09:00 (Catapres) 0.1 mg Q4H PRN PO 08/23/17 17:15 (KCl) 20 meq Q12HR PO 08/24/17 21:00 UNV (KCl) 40 meq ONCE ONCE PO 08/24/17 08:15 08/24/17 08:16 UNV Vital Signs / I&O Vital Signs Date Time Temp Pulse Resp B/P (MAP) Pulse Ox O2 Delivery O2 Flow Rate FiO2 08/24/17 06:00 62 18 98 08/24/17 05:00 64 16 96 08/24/17 04:00 60 16 98 08/24/17 02:00 62 16 96 08/24/17 00:00 72 08/24/17 00:00 74 08/24/17 00:00 66 16 137/84 (101) 96 08/23/17 23:00 80 08/23/17 22:00 72 08/23/17 21:00 88 08/23/17 20:00 97.7 83 16 161/98 (119) 96 08/23/17 19:59 08/23/17 19:22 67 18 151/91 (111) 95 Room Air 08/23/17 18:28 73 17 182/82 (115) 100 Room Air 08/23/17 16:10 74 17 176/92 (120) 100 Room Air 08/23/17 14:20 74 18 208/111 (143) 100 Nasal Cannula 2.00 08/23/17 13:22 77 17 203/94 (130) 100 Nasal Cannula 2.00 08/23/17 12:43 76 232/112 (152) 08/23/17 12:42 76 17 228/123 (158) 08/23/17 12:16 77 17 232/112 (152) 96 Room Air 08/23/17 11:30 100 Nasal Cannula 08/23/17 11:30 100 2.00 08/23/17 11:30 78 95 Room Air 08/23/17 11:26 98.4 76 17 228/123 (158) I/O 08/23/17 08/23/17 08/23/17 08/24/17 08/24/17 08/24/17 07:00 15:00 23:00 07:00 15:00 23:00 Intake Total 120 ml 480 ml Output Total 1500 ml 1275 ml Balance -1380 ml -795 ml Intake Oral 120 ml 480 ml Output Urine Total 1500 ml 1275 ml # Voids 1 Physical Exam GENERAL: SKIN: Warm and dry. HEAD: Atraumatic. Normocephalic. EYES: Pupils equal and round. No scleral icterus. No injection or drainage. ENT: No nasal bleeding or discharge. NECK: Trachea midline. No JVD. CARDIOVASCULAR: irregularly irregular rate and rhythm, II/ systolic murmur RESPIRATORY: No accessory muscle use. Clear to auscultation. Breath sounds equal bilaterally. GASTROINTESTINAL: Abdomen soft, non-tender, nondistended. MUSCULOSKELETAL: Extremities without clubbing, cyanosis, or edema. No obvious deformities. NEUROLOGICAL: Awake and alert. No obvious cranial nerve deficits. Normal speech. PSYCHIATRIC: Appropriate mood and affect; insight and judgment normal. Laboratory Laboratory Tests Test 08/23/17 11:00 08/23/17 17:10 08/23/17 19:23 08/23/17 21:08 White Blood Count 7.2 TH/MM3 Red Blood Count 4.30 MIL/MM3 Hemoglobin 13.6 GM/DL Hematocrit 40.4 % Mean Corpuscular Volume 93.7 FL Mean Corpuscular Hemoglobin 31.6 PG Mean Corpuscular Hemoglobin Concent 33.8 % Red Cell Distribution Width 14.5 % Platelet Count 216 TH/MM3 Mean Platelet Volume 10.1 FL Neutrophils (%) (Auto) 71.1 % Lymphocytes (%) (Auto) 16.7 % Monocytes (%) (Auto) 9.6 % Eosinophils (%) (Auto) 2.2 % Basophils (%) (Auto) 0.4 % Neutrophils # (Auto) 5.1 TH/MM3 Lymphocytes # (Auto) 1.2 TH/MM3 Monocytes # (Auto) 0.7 TH/MM3 Eosinophils # (Auto) 0.2 TH/MM3 Basophils # (Auto) 0.0 TH/MM3 CBC Comment DIFF FINAL Differential Comment Prothrombin Time 10.7 SEC Prothromb Time International Ratio 1.1 RATIO Activated Partial Thromboplast Time 26.3 SEC 30.6 SEC Blood Urea Nitrogen 12 MG/DL Creatinine 0.78 MG/DL Random Glucose 93 MG/DL Total Protein 7.4 GM/DL Albumin 3.9 GM/DL Calcium Level 8.6 MG/DL Magnesium Level 2.6 MG/DL Alkaline Phosphatase 56 U/L Aspartate Amino Transf (AST/SGOT) 17 U/L Alanine Aminotransferase (ALT/SGPT) 21 U/L Total Bilirubin 0.6 MG/DL Sodium Level 139 MEQ/L Potassium Level 4.1 MEQ/L Chloride Level 104 MEQ/L Carbon Dioxide Level 25.7 MEQ/L Anion Gap 9 MEQ/L Estimat Glomerular Filtration Rate 115 ML/MIN Total Creatine Kinase 88 U/L 75 U/L 69 U/L Troponin I 0.16 NG/ML 0.19 NG/ML 0.17 NG/ML Test 08/24/17 04:47 White Blood Count 9.0 TH/MM3 Red Blood Count 3.97 MIL/MM3 Hemoglobin 12.4 GM/DL Hematocrit 37.5 % Mean Corpuscular Volume 94.4 FL Mean Corpuscular Hemoglobin 31.3 PG Mean Corpuscular Hemoglobin Concent 33.2 % Red Cell Distribution Width 14.5 % Platelet Count 194 TH/MM3 Mean Platelet Volume 9.7 FL Neutrophils (%) (Auto) 74.3 % Lymphocytes (%) (Auto) 13.3 % Monocytes (%) (Auto) 9.5 % Eosinophils (%) (Auto) 2.6 % Basophils (%) (Auto) 0.3 % Neutrophils # (Auto) 6.7 TH/MM3 Lymphocytes # (Auto) 1.2 TH/MM3 Monocytes # (Auto) 0.9 TH/MM3 Eosinophils # (Auto) 0.2 TH/MM3 Basophils # (Auto) 0.0 TH/MM3 CBC Comment DIFF FINAL Differential Comment Activated Partial Thromboplast Time 49.0 SEC Blood Urea Nitrogen 17 MG/DL Creatinine 0.89 MG/DL Random Glucose 107 MG/DL Total Protein 6.2 GM/DL Albumin 3.3 GM/DL Calcium Level 8.2 MG/DL Alkaline Phosphatase 50 U/L Aspartate Amino Transf (AST/SGOT) 14 U/L Alanine Aminotransferase (ALT/SGPT) 21 U/L Total Bilirubin 0.6 MG/DL Sodium Level 141 MEQ/L Potassium Level 3.5 MEQ/L Chloride Level 102 MEQ/L Carbon Dioxide Level 28.7 MEQ/L Anion Gap 10 MEQ/L Estimat Glomerular Filtration Rate 81 ML/MIN Triglycerides Level 70 MG/DL Cholesterol Level 115 MG/DL LDL Cholesterol 53 MG/DL HDL Cholesterol 48.1 MG/DL Cholesterol/HDL Ratio 2.39 RATIO Imaging Last 24 hours Impressions Chest X-Ray 08/23/17 1145 Signed Impressions: CONCLUSION: 1. Small left pleural effusion. 2. Cardiac megaly. 3. Minimal central pulmonary vascular congestion. 4. Degenerative changes throughout the thoracic spine. (Karmen Crawford) Assessment and Plan Problem List: (1) Dyspnea ICD Codes: R06.00 - Dyspnea, unspecified Status: Acute (2) Hypertension ICD Codes: I10 - Essential (primary) hypertension Status: Acute (3) NSTEMI (non-ST elevated myocardial infarction) ICD Codes: I21.4 - Non-ST elevation (NSTEMI) myocardial infarction Status: Acute (4) HTN (hypertension) ICD Codes: I10 - Essential (primary) hypertension Status: Chronic (5) Paroxysmal A-fib ICD Codes: I48.0 - Paroxysmal atrial fibrillation Status: Chronic Assessment and Plan 87 yo WM with paroxysmal atrial fibrillation, HTN, HLD and mild-moderate aortic stenosis (2016 echo TWYLA 1.3cm, mean gradient 17mmHg) who presents with progressive dyspnea. NSTEMI- troponins stable 0.16-->0.19-->0.17 EKG nonischemic no chest pain telemetry shows 3 beats of NSVT overnight plan for C this morning, keep npo CHF- diuresing well, -2L negative balance clinically improving cont furosemide, monitor creatinine aortic stenosis- mild-mod on 2016 echo; 2D echo ordered afib- rate controlled, heparin HTN- SBP improved on current medical regimen (Karmen Crawford) Problem Qualifiers (1) Dyspnea: Qualified Codes: R06.00 - Dyspnea, unspecified (2) Hypertension: Qualified Codes: I10 - Essential (primary) hypertension Karmen Crawford Aug 24, 2017 08:22 Tyson Montenegro MD Aug 24, 2017 08:35 Alejandro Flores DO Aug 25, 2017 09:34
[2017-08-24] MEDS ORDERED: POTASSIUM CHLORIDE 20 MEQ CONTROLLED RELEASE TAB PO ONE (08:30)
[2017-08-24] MEDS ORDERED: MIDAZOLAM HCL 2 MG/2 ML VIAL ONE (08:46)
[2017-08-24] MEDS ORDERED: HEPARIN-NS/PF INJ 1,000 ML ONE (08:46)
[2017-08-24] MEDS ORDERED: HEPARIN SODIUM - IV 10,000 UNITS/10 ML VIAL ONE (08:47)
[2017-08-24] MEDS ORDERED: NITROGLYCERIN INJ 5 ML ONE (08:47)
[2017-08-24] MEDS ORDERED: MISC INFORMATION XX ONE (09:30)
[2017-08-24] MEDS ORDERED: BACITRACIN OINT 0.9 GM PKT TOP ONE (09:30)
--- NOTE | 2017-08-24 09:39 | CATHPROC ---
[facility] HIS Report Study Information Study Number Admission Scheduled Start Study Start [id number] Aug 23 2017 1:14PM 08/24/2017 Aug 24 2017 8:45AM [place] Service Cardiac Catheterization Admit Source Facility Department Emergency department [facility] - [employer] Physician and Clinical Staff Initial Tyson Anderson It Technical Support Specialist Rosales Locke,RN It Technical Support Specialist Suly Fischer,KENNETH Recorder Ellen Ojeda,RT(R) Scrub Ernie Lopez RCIS(BS) Procedures Performed Procedure Location (Site) Vessel Name Angiogram LV LV Ventricle Coronary Angiograms LCA Left Coronary Coronary Angiograms RCA Right Coronary L Heart Cath Equipment Time Trade Manager Description Size Mfg Part Number Used/Scraped TRANSDUCER, TRUWAVE [id number] 08:48 CAMPBELL NORTON * Used W/STOCKCOCK *[id number] *[id number] *[id number] 08:48 [employer] BLANKET,WARM AIR CCL * Used *[id number] 08:48 [employer] PACK, CCL CUSTOM * Used *[id number] 08:48 [employer] SUPPORT, ARTERIAL ADULT 71560 *[id number] Used [id number] 08:48 [employer] PACER PEN, SKIN DUAL W/ RULER * Used *[id number] 09:04 MEDTRONIC JR 5.0 DXTERITY CATHETER fr 5 [id number] Used BAND, RADIAL COMPRESSION TR [id number] 09:28 [employer] MEDICAL 24CM Used SHORT 24 *[id number] SHEATH, FR6 RADIAL PRELUDE 08:48 Arteris FR 6 [id number] Used EASE 11CM [id number] 08:48 [employer]is WIRE, EXCHANGE 260CM 3MMJ 260CM Used *[id number] 08:48 NAMIC MANIFOLD, 4 PORT * Used *[id number] 09:25 NAMIC TUBING, HIGH PRESSURE 20" 20" Used *[id number] 08:48 [employer]COMED OMNIPAQUE, 350 MG, 150ML 150ML [id number] Used 09:29 [employer]COMED OMNIPAQUE, 350 MG, 50ML 50ML [id number] Used Equipment Model, Serial, Lot Number and Expiration Data Description Model Number Serial Number Lot Number Expiration Date BAND, RADIAL COMPRESSION TR [id number] 05-09-2020 SHORT 24 History: Current Medications Medication Dosage/Unit Route Frequency Last Date/Time Taken Beta Chip Imdur ASA History: Risk Factors Family History of Hypertension Dyslipidemia Previous ME Previous Heart Failure Premature CAD Yes Yes Yes No No Prior Valve Prior PCI Prior CABG Surgery No No No Cerebrovascular Peripheral Artery Chronic Lung On Dialysis Diabetes Disease Disease Disease No No No No No History: Symptoms/Diagnosis Selection Items SOB History: Other Current Smoker Method Quit Packs a Day Years Used Pack Years No Cigarettes 50 Years Ago 1 16 16 Labs Hgb (g/dl) Hct (%) WBC (l/cumm) Platelets (thousands) 11.60-17.00 35.00-51.00 4.00-11.00 150.00-450.00 12.4 37.5 9 194 Glucose (mg/dl) BUN (mg/dl) Creatinine (mg/dl) BUN:Creatinine (1:x) 74.00-106.00 7.00-18.00 0.50-1.30 10.00-20.00 107 17 0.8 21.3 Na (meq/l) K (meq/l) 136.00-145.00 3.50-5.10 141 3.5 INR (PTT:PT) 0.90-1.10 1.1 Troponin I (ng/ml) CPK (u/l) CPK-MB (ng/ML) 0.02-0.05 26.00-308.00 0.50-3.60 0.17 69 Not Drawn Medication Medication Total Dose (Bolus/Oral) Medication Total Dosage/Unit 1% XYLOCAINE 5 mL FENTANYL 50 mcg VERSED 1 mg Medications (Bolus/Oral) Medication Time Given Dosage/Unit Administered By Reason VERSED 08/24/2017 9:13:29 AM 1 mg Rosales Locke 1 mg VERSED given in lab by Rosales Locke RN in Left Forearm via Peripheral IV. Ordered by Roc Montenegro. FENTANYL 08/24/2017 9:14:43 AM 50 mcg Chucky Rosales 50 mcg FENTANYL given in lab by Rosales Locke RN in Left Forearm via Peripheral IV. Ordered by Tyson Montenegro. 1% XYLOCAINE 08/24/2017 9:15:13 AM 5 mL Tyson Montenegro 5 mL 1% XYLOCAINE given in lab by Tyson Montenegro in Right Radial via Subcutaneous. Medication (Drip) Medication Time Given Dosage/Unit Concentration/Unit Diluent (ml) Solution IV Solutions 08/24/2017 8:46:28 AM 50 mL (IV) NaCl .9 IV Solutions given in lab by Suly Fischer RN in Left Forearm via Peripheral IV. Pump/Drip Flow usi ng NaCl .9. Initial Case Assessment Cardiovascular HR Rhythm NIBP Chest Pain 69 a-fib 162/93 0 Edema Present Skin color Skin None Normal Warm Dry Circulatory - Right Pulses Dorsalis Pedis Femoral Radial 2 2 2 Scale (0,1,2,3,4,d) Circulatory - Left Pulses Dorsalis Pedis Femoral Radial 2 2 Scale (0,1,2,3,4,d) Neurological State Oriented to time-place- Alert Moves all extremities person Respiration - General Respiration Rate SpO2 (%) (B/min) 19 93 Chronological Log Time Study Chronological Log 8:45:00 Patient arrived via Bed. 8:46:04 Patient Name, D.O.B, / Armband Verified By R.N. 8:46:05 Consent signed by the physician and the patient and verified by the [employer] staff. 8:46:05 Pre-op and post- op instructions given; patient acknowledges understanding of instructions. 8:46:06 Verbal Stimulation=2 Physical Stimulation=2 Airway=2 Respiration=2 TOTAL=8. (0=absent, 1=li mited, 2=present) 8:46:15 Presedation assessment performed by [employer] RN. 8:46:16 Allens test performed on the right radial and ulnar artery. 8:46:19 Patient has been NPO for More than 6Hrs. 8:46:19 Skin Breakdown- 8:46:24 Patient Warmer Placed on the Table. 8:46:25 John Prominences Protected 8:46:27 A # 20 IV was noted in the Forearm (left). Grade = 0 8:46:27 A # 18 IV was noted in the Forearm (right). Grade = 0 8:46:28 IV Solutions given in lab by Suly Fischer, RN in Left Forearm via Peripheral IV. Pump/Dri p Flow using NaCl .9. 8:46:29 History and physical on the chart or being dictated. Assessment: Initial Case, HR=69 BPM, Rhythm=a-fib, ZJEZ=131/93 mmhg, Chest Pain=0, Edema=None, Color=Normal, Skin = Warm, Dry Right Pulses: Chris Ped=2, Femoral=2, Radial=2 8:46:29 Left Pulses: Chris Ped=2, Femoral=2 Neurological: State=Alert, Ox3, MEADE Respiration: Resp=19 B/min, SpO2=93 % 8:54:05 Reference ECG taken Vitals capture started with the following parameters, Patient=Adult, Interval=5 min, Initial Pre qcido=836 mmHg, 8:55:40 Deflation Rate=5 mmHg, Cuff placed on Left Arm 8:56:16 HR=67 bpm, BRRG=979/93 mmhg, SpO2=92.0 %, Resp=19 B/min, Pain=0, Jana=10, Vance=2 8:59:00 Bilateral groins prepped with 2% chlorhexidine, and draped after a 3 minute waiting time. 9:01:19 HR=72 bpm, NELQ=533/98 mmhg, SpO2=91.0 %, Resp=19 B/min, Pain=0, Jana=10, Vance=2 9:01:56 MD paged 9:02:57 Pressure channel 1 zeroed. 9:04:11 MD responded 9:06:22 HR=67 bpm, TWIB=772/87 mmhg, SpO2=93.0 %, Resp=19 B/min, Pain=0, Jana=10, Vance=2 9:10:30 MD arrived. 9:11:17 HR=77 bpm, ZEPP=358/102 mmhg, SpO2=92.0 %, Resp=20 B/min Time Out. Correct patient, correct procedure, correct physician, labs, allergies, and equipment verified with label press operator 9:11:18 team present. Fire risk assesment completed (see hard stop sheet for coding). Time Out Concu rred by MD and individual staff in procedure. 9:13:29 1 mg VERSED given in lab by Rosales Locke RN in Left Forearm via Peripheral IV. Ordered by Tyson Cleary. 9:14:43 50 mcg FENTANYL given in lab by Rosales Locke RN in Left Forearm via Peripheral IV. Ordered by Tyson Montenegro. 9:15:06 Case Start 9:15:13 5 mL 1% XYLOCAINE given in lab by Tyson Montenegro in Right Radial via Subcutaneous. 9:15:29 Access site was Right Radial Artery. A SHEATH, FR6 RADIAL PRELUDE EASE 11CM FR 6 was advanced into the Radial (right) using the [place] milton 9:15:35 technique. 9:16:22 HR=75 bpm, XONA=832/82 mmhg, SpO2=93.0 %, Resp=18 B/min, Pain=0, Jana=10, Vance=2 A JR 5.0 DXTERITY CATHETER fr 5 was advanced over a wire. OMNIPAQUE, 350 MG, 150ML 150ML was use d for 9:17:12 injections. 9:18:05 The RCA was injected and visualized at various angles. OMNIPAQUE, 350 MG, 150ML 150ML used. After removing the current catheter a JL 3.5 INFINITI CATHETER FR 5 was advanced over a WIRE, EX CHANGE 260CM 9:18:23 3MMJ 260CM. Recorded Pressure: Ao, HR=74, Condition=Condition 1 9:19:38 (Aorta) Ao 113/75/94 9:19:53 The LCA was injected and visualized at various angles. OMNIPAQUE, 350 MG, 150ML 150ML used. 9:21:21 HR=76 bpm, RBOR=452/78 mmhg, SpO2=91.0 %, Resp=17 B/min, Pain=0, Jana=10, Vnace=2 After removing the current catheter a PIGTAIL ANG. INFINITI CATHETER FR 5 was advanced over a WI RE, EXCHANGE 9:23:36 260CM 3MMJ 260CM. Recorded Pressure: LV, HR=76, Condition=Condition 1 9:24:24 (Left Ventricle) LV 174/-11/10 9:26:10 The LV was injected at 10 cc/sec for a total of 30. OMNIPAQUE, 350 MG, 50ML 50ML used. 9:26:20 HR=79 bpm, QOPN=460/74 mmhg, SpO2=90.0 %, Resp=16 B/min, Pain=0, Jana=10, Vance=2 Recorded Pressure: LV, Ao, HR=76, Condition=Condition 1 9:26:52 (Left Ventricle) LV 199/-11/14, (Aorta) Ao 159/73/105 9:27:20 Case End (Physician broke scrub) 9:27:25 Catheter was removed 9:31:26 Vitals capture stopped. Radial Compression Device Used. 12 mLs of air placed in BAND, RADIAL COMPRESSION TR SHORT 24 2 4CM. Affected 9:35:11 hand 92 % O2 saturation. 9:35:21 No case complications noted. 9:35:22 Cine recording checked. 9:35:26 Report called to floor. 9:35:30 Bedside Report will be given. 9:35:34 A Left Heart Cath was performed. 9:35:35 Patient moved to stretcher End Study - Contrast Media Used In Study Contrast Total Opened (mL) Total Used (mL) Total Wasted (mL) Omnipaque 70 70 0 End Study - Maximum Contrast Load Max Contrast Load (mL) 598.9 End Study - Radiation Exposure Fluoro Time (minutes) 2.2 End Study - Sheaths Sheaths Pulled By Sheath Hold Time (min) Ernie Lopez End Study - Patient Disposition Complications Transferred To Interventional Outcome No Telemetry Bed No attempt made
[2017-08-24] MEDS: LISINOPRIL 20 MG TAB PO SCH (09:55)
[2017-08-24] MEDS: CARVEDILOL 6.25 MG TAB PO SCH ×2 (09:56→21:16)
[2017-08-24] MEDS: ASPIRIN EC 81 MG TABEC PO SCH (09:56)
[2017-08-24] MEDS: ATORVASTATIN 20 MG TAB PO SCH (09:56)
--- NOTE | 2017-08-24 09:56 | MA ---
cc: Tyson Montenegro MD DATE: 08/24/2017 DATE OF PROCEDURE: 08/24/2017 INDICATION FOR PROCEDURE: Non-ST elevation myocardial infarction. PROCEDURES PERFORMED: 1. Fluoroscopy with interpretation. 2. Coronary angiography. 3. Left heart catheterization. 4. Left ventriculography. METHOD: Risks, benefits and alternatives discussed with the patient. The patient understood. Consented to the procedure. The patient was brought back to the catheterization lab, placed on the catheterization table. The right wrist was prepped and draped in a sterile fashion. The right wrist was anesthetized with 2% lidocaine. The right radial artery was cannulated and a 6-Czech, 7-cm sheath was placed without difficulty. LEFT HEART CATHETERIZATION: Intraventricular hemodynamics measured at 199/14 mmHg. There was no significant aortic stenosis by transvalvular pullback. LEFT VENTRICULOGRAPHY: Left ventriculography was performed in the right anterior oblique view with a 30 mL contrast injection with good opacification. Left ventricular ejection fraction appeared to be mild to moderately dilated. The ejection fraction estimated at 50 percent. There is no significant mitral regurgitation noted. CORONARY ANGIOGRAPHY: 1. Left main coronary has mild luminal irregularities. 2. Left anterior descending coronary proximally has a 40% ____ tandem stenosis, does not appear to have high-grade stenosis. In the mid segment, there is 30 percent stenosis. Left anterior descending coronary reaches around the inferoapex. There are smaller diagonal branches with mild luminal irregularities. 3. Left circumflex is a dominant vessel, gives rise to a very large posterior descending branch. The obtuse marginal branch has 30 percent stenosis. The posterior descending branch is widely patent. 4. Right coronary is a small caliber size, only gives rise to an acute marginal branch. CONCLUSIONS: 1. 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 2. Mildly reduced left ventricular systolic function with ejection fraction visually estimated at 50 percent. PLAN: The patient will be monitored closely for any post-procedural complications. Obviously blood pressure control will be critical. Remainder of care per Dr. Flores. Tyson Montenegro MD RAY/KD , 09:32 AM , 09:55 AM
--- NOTE | 2017-08-24 10:31 | HHI.PR ---
Subjective Remarks feels better. going for [facility] Objective Vitals heart reg/fabrizio lsb lung cta abds /nt ext no edema Vital Signs Date Time Temp Pulse Resp B/P (MAP) Pulse Ox O2 Delivery O2 Flow Rate FiO2 08/24/17 08:23 97.7 76 16 144/82 (102) 97 08/24/17 06:00 62 18 98 08/24/17 05:00 64 16 96 08/24/17 04:00 60 16 98 08/24/17 02:00 62 16 96 08/24/17 00:00 72 08/24/17 00:00 74 08/24/17 00:00 66 16 137/84 (101) 96 08/23/17 23:00 80 08/23/17 22:00 72 08/23/17 21:00 88 08/23/17 20:00 97.7 83 16 161/98 (119) 96 08/23/17 19:59 08/23/17 19:22 67 18 151/91 (111) 95 Room Air 08/23/17 18:28 73 17 182/82 (115) 100 Room Air 08/23/17 16:10 74 17 176/92 (120) 100 Room Air 08/23/17 14:20 74 18 208/111 (143) 100 Nasal Cannula 2.00 08/23/17 13:22 77 17 203/94 (130) 100 Nasal Cannula 2.00 08/23/17 12:43 76 232/112 (152) 08/23/17 12:42 76 17 228/123 (158) 08/23/17 12:16 77 17 232/112 (152) 96 Room Air 08/23/17 11:30 100 Nasal Cannula 08/23/17 11:30 100 2.00 08/23/17 11:30 78 95 Room Air 08/23/17 11:26 98.4 76 17 228/123 (158) Result Diagram: 08/24/1744608/24/17446 Imaging Last Impressions Chest X-Ray 08/23/17 1145 Signed Impressions: CONCLUSION: 1. Small left pleural effusion. 2. Cardiac megaly. 3. Minimal central pulmonary vascular congestion. 4. Degenerative changes throughout the thoracic spine. A/P Problem List: (1) NSTEMI (non-ST elevated myocardial infarction) ICD Codes: I21.4 - Non-ST elevation (NSTEMI) myocardial infarction Status: Acute Plan: NSTEMI SOB with LE edema, likely secondary to CHF HTN, poorly controlled - Pt is an 87 y/o male with HTN, hyperlipidemia, hypothyroidism and paroxysmal A. fib. - He presented to the ED at [facility] on 08/23/17 for evaluation of shortness of breath. Patient reports that he started having increased shortness of breath about a week ago. Last night he felt that the SOB seemed to worsen and he had some associated light substernal chest pressure. He was unable to lie flat last night and he has noted some LE edema. He was seen at [facility] this morning and his BP was significantly elevated at 206/130, decreased O2 sats with activity to 88% and had a CXR which noted cardiac silhouette appears enlarged due to marked pectus excavatum deformity, atherosclerosis of the thoracic aorta, mild central vascular prominence, increased density in the retrocardiac space left side as well as small effusions, possibly suggestive of compressive atelectasis vs. pneumonitis at the left lung base vs. some mild interstitial edema and mild failure. Pt was recommended to go to the ED for further evaluation. - In the ED his BP continued to be significantly elevated and he was started on a Nitro drip. Pts BP currently is 229/107 - His labs revealed an elevation in his troponin I of 0.16 and he was started on a Heparin bolus and drip. - Cardiology has been consulted [facility] 08/24: 1. 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 2. Mildly reduced left ventricular systolic function with ejection fraction visually estimated at 50 percent. - Pt has been seen by [facility] Cardiology and has been started on Lasix 40mg Q8H, Coreg 6.25 Q12H, Imdur 30mg BID Lisinopril 40mg daily, ASA 81 mg daily and Lipitor - stop heparin gtt - await echo result - lasix per cardiology. monitor bmp Paroxysmal atrial fibrillation - Pt has been taking on ASA as an outpt for anticoagulation - In the past he was on Coumadin and Elquis which he stopped himself. - Currently in NSR with occasional PVCs on telemetry - Cont. telemetry monitoring - Cont. ASA Hyperlipidemia - Cont. statin (2) Paroxysmal A-fib ICD Codes: I48.0 - Paroxysmal atrial fibrillation Status: Chronic (3) HTN (hypertension) ICD Codes: I10 - Essential (primary) hypertension Status: Chronic (4) Hyperlipidemia ICD Codes: E78.5 - Hyperlipidemia, unspecified Status: Chronic Danilo Quintanilla MD Aug 24, 2017 10:30
--- NOTE | 2017-08-24 10:41 | EKG ---
Date Performed: 08/23/2017 Time Performed: 22:19:28 PTAGE: 87 years EKG: Possible Sinus rhythm with first degree AV block with occasional PVC Leftward axis Lateral ST-T changes may be due to isch emia Abnormal ECG PREVIOUS TRACING : 08/23/2017 15.20 No significant change from previous tracing noted. DOCTOR: Milind Park Interpretating Date/Time 08/24/2017 10:40:55
[2017-08-24] MEDS: ACETAMINOPHEN 325 MG TAB PO PRN ×2 (15:37→21:17)
--- NOTE | 2017-08-24 15:37 | ECHRPT ---
Indication: heart failure CONCLUSIONS Moderate concentric left ventricular hypertrophy. The left ventricular systolic function is low normal with an estimated ejection fraction in the rang e of 50- 55%. The left atrial size is mildly dilated. Trace mitral valve regurgitation. Diffuse calcification of the aortic valve. Aortic valve area is 0.87 cm. Aortic valve mean gradient is 13 mmHg. BP: / HR: Rhythm: MEASUREMENTS (Male / Female) Normal Values Technical Quality: 2D ECHO LV Diastolic Diameter PLAX 4.3 cm 4.2 - 5.9 / 3.9 - 5.3 cm LV Systolic Diameter PLAX 3.2 cm IVS Diastolic Thickness 1.8 cm 0.6 - 1.0 / 0.6 - 0.9 cm LVPW Diastolic Thickness 1.7 cm 0.6 - 1.0 / 0.6 - 0.9 cm LV Relative Wall Thickness 0.8 RV Internal Dim ED PLAX 2.3 cm LVOT Diameter 1.9 cm M-MODE Aortic Root Diameter MM 3.5 cm LA Systolic Diameter MM 4.3 cm LA Ao Ratio MM 1.2 AV Cusp Separation MM 1.3 cm DOPPLER AV Peak Velocity 257.5 cm/s AV Peak Gradient 26.5 mmHg AV Mean Gradient 13.0 mmHg AV Velocity Time Integral 56.5 cm LVOT Peak Velocity 73.7 cm/s LVOT Peak Gradient 2.2 mmHg LVOT Velocity Time Integral 17.3 cm AV Area Cont Eq vti 0.9 cm AV Area Cont Eq pk 0.8 cm Mitral E Point Velocity 95.0 cm/s Mitral A Point Velocity 47.5 cm/s Mitral E to A Ratio 2.0 LV E' Lateral Velocity 9.4 cm/s Mitral E to LV E' Lateral Ratio 10.1 FINDINGS LEFT VENTRICLE Moderate concentric left ventricular hypertrophy. Normal left ventricular size. The left ventricular systolic function is low normal with an estimated ejection fraction in the rang e of 50- 55%. RIGHT VENTRICLE Normal right ventricular size and systolic function. LEFT ATRIUM The left atrial size is mildly dilated. RIGHT ATRIUM The right atrial size is normal. ATRIAL SEPTUM Normal atrial septal thickness without atrial level shunting by limited color doppler interrogation. AORTA The aortic root and proximal ascending aorta are not well visualized. MITRAL VALVE Structurally normal mitral valve. Trace mitral valve regurgitation. AORTIC VALVE Diffuse calcification of the aortic valve. Aortic valve area is 0.87 cm. Aortic valve mean gradient is 13 mmHg. TRICUSPID VALVE Structurally normal tricuspid valve. No tricuspid valve stenosis or regurgitation. PULMONARY VALVE No pulmonary valve regurgitation or stenosis. VESSELS The inferior vena cava was not well visualized. PERICARDIUM There is no pericardial effusion. Tyson Montenegro MD, FACC (Electronically Signed) Final Date:24 August 2017 15:36
--- NOTE | 2017-08-24 16:15 | EKG ---
Date Performed: 08/24/2017 Time Performed: 10:27:16 PTAGE: 87 years EKG: Atrial fibrillation with PVC(s) or aberrant ventricular conduction Possible left anterior f ascicular block Ant/septal and lateral ST-T changes are nonspecific Abnormal ECG PREVIOUS TRACING : 08/23/2017 22.19 No significant change from previous tracing noted. DOCTOR: Milind Park Interpretating Date/Time 08/24/2017 16:14:53
[2017-08-24] MEDS: POTASSIUM CHLORIDE 20 MEQ CONTROLLED RELEASE TAB PO SCH (21:16)
[2017-08-25] VITALS (13 sets, daily range): BP systolic 147–151; BP diastolic 79–84; PULSE 58–77; RESP 16–18; TEMP 97.9; O2SAT 94–96
[2017-08-25 04:23] LABS: AUTOMATED NEUTROPHIL # 8.1 TH/MM3 (1.8-7.7); BASOPHIL % 0.3 % (0.0-2.0); EOSINOPHIL # 0.1 TH/MM3 (0-0.4); EOSINOPHIL % 1.2 % (0.0-4.0); HEMATOCRIT 36.9 % (39.0-51.0); HEMOGLOBIN 12.3 GM/DL (13.0-17.0); LYMPH % 12.3 % (9.0-44.0); LYMPHOCYTE # 1.3 TH/MM3 (1.0-4.8); MEAN CELL VOLUME 93.4 FL (80.0-100.0); MEAN CORPUSCULAR HEMOGLOBIN 31.2 PG (27.0-34.0); MEAN CORPUSCULAR HGB CONC 33.3 % (32.0-36.0); MEAN PLATELET VOLUME 10.1 FL (7.0-11.0); MONO % 9.9 % (0.0-8.0); NEUT % 76.3 % (16.0-70.0); PLATELET COUNT 198 TH/MM3 (150-450); RED BLOOD COUNT 3.95 MIL/MM3 (4.50-5.90); RED CELL DISTRIBUTION WIDTH 14.2 % (11.6-17.2); WHITE BLOOD COUNT 10.6 TH/MM3 (4.0-11.0)
[2017-08-25 04:47] LABS: BICARBONATE 30.5 MEQ/L (21.0-32.0); CALCIUM 8.2 MG/DL (8.5-10.1); CREATININE 0.91 MG/DL (0.60-1.30)
[2017-08-25] MEDS: FUROSEMIDE 40 MG/4 ML VIAL IV PUSH SCH (06:31)
[2017-08-25] MEDS: ISOSORBIDE MONONITRATE 30 MG CR TAB (IMDUR) PO SCH (06:31)
--- NOTE | 2017-08-25 08:40 | HHI.PR ---
Subjective Remarks eager for dc. nursing reports pt with brief episode of disorientation last night. Objective Vitals heart irreg lung cta abd s/nt ext no edema Vital Signs Date Time Temp Pulse Resp B/P (MAP) Pulse Ox O2 Delivery O2 Flow Rate FiO2 08/25/17 06:00 62 08/25/17 05:00 58 08/25/17 04:00 64 08/25/17 03:25 66 16 151/79 (103) 94 08/25/17 03:00 66 08/25/17 02:00 77 08/25/17 01:00 62 08/25/17 00:00 60 08/24/17 23:42 69 16 132/75 (94) 93 08/24/17 23:00 69 08/24/17 22:00 74 08/24/17 21:13 79 16 163/89 (113) 95 08/24/17 21:00 68 08/24/17 20:00 78 08/24/17 20:00 97.9 72 16 176/92 (120) 96 08/24/17 19:00 65 08/24/17 18:00 65 08/24/17 17:00 80 08/24/17 16:12 97.8 64 16 159/80 (106) 97 08/24/17 16:00 76 08/24/17 15:00 66 08/24/17 14:00 73 08/24/17 12:00 64 08/24/17 11:57 97.6 65 18 143/92 (109) 95 08/24/17 11:00 65 08/24/17 10:00 72 08/24/17 09:00 74 Result Diagram: 08/25/17 0346 08/25/17 0346 Imaging Last Impressions Chest X-Ray 08/23/17 1145 Signed Impressions: CONCLUSION: 1. Small left pleural effusion. 2. Cardiac megaly. 3. Minimal central pulmonary vascular congestion. 4. Degenerative changes throughout the thoracic spine. A/P Problem List: (1) NSTEMI (non-ST elevated myocardial infarction) ICD Codes: I21.4 - Non-ST elevation (NSTEMI) myocardial infarction Status: Acute Plan: NSTEMI SOB with LE edema, likely secondary to CHF HTN, poorly controlled Aortic valve stenosis - Pt is an 87 y/o male with HTN, hyperlipidemia, hypothyroidism and paroxysmal A. fib. - He presented to the ED at [facility] on 08/23/17 for evaluation of shortness of breath. Patient reports that he started having increased shortness of breath about a week ago. Last night he felt that the SOB seemed to worsen and he had some associated light substernal chest pressure. He was unable to lie flat last night and he has noted some LE edema. He was seen at [facility] this morning and his BP was significantly elevated at 206/130, decreased O2 sats with activity to 88% and had a CXR which noted cardiac silhouette appears enlarged due to marked pectus excavatum deformity, atherosclerosis of the thoracic aorta, mild central vascular prominence, increased density in the retrocardiac space left side as well as small effusions, possibly suggestive of compressive atelectasis vs. pneumonitis at the left lung base vs. some mild interstitial edema and mild failure. Pt was recommended to go to the ED for further evaluation. - In the ED his BP continued to be significantly elevated and he was started on a Nitro drip. Pts BP currently is 229/107 - His labs revealed an elevation in his troponin I of 0.16 and he was started on a Heparin bolus and drip. - Cardiology has been consulted [facility] 08/24: 1. 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 2. Mildly reduced left ventricular systolic function with ejection fraction visually estimated at 50 percent. - Pt has been seen by [facility] and has been started on Lasix 40mg Q8H, Coreg 6.25 Q12H, Imdur 30mg BID Lisinopril 40mg daily, ASA 81 mg daily and Lipitor - off heparin gtt - - lasix per cardiology - dc home when ok with cardiology. Paroxysmal atrial fibrillation - Pt has been taking on ASA as an outpt for anticoagulation - In the past he was on Coumadin and Eliquis which he stopped himself. - Cont. telemetry monitoring - Cont. ASA Hyperlipidemia - Cont. statin (2) Paroxysmal A-fib ICD Codes: I48.0 - Paroxysmal atrial fibrillation Status: Chronic (3) HTN (hypertension) ICD Codes: I10 - Essential (primary) hypertension Status: Chronic (4) Hyperlipidemia ICD Codes: E78.5 - Hyperlipidemia, unspecified Status: Chronic Danilo Quintanilla MD Aug 25, 2017 08:40
--- NOTE | 2017-08-25 08:56 | PD.CARD.PN ---
Subjective Subjective Remarks patient states he's feeling well and anxious to go home. telemetry shows occasional pauses ~2 seconds. (Karmen Crawford) Objective Medications Current Medications Medications (Trade) Dose Ordered Sig/Arnoldo Route Start Time Stop Time Status Last Admin (NS Flush) 2 ml UNSCH PRN IVF 08/23/17 11:45 08/24/17 21:16 Nitroglycerin/ Dextrose 250 ml @ 1.5 mls/hr TITRATE PRN IV 08/23/17 12:45 (Coreg) 6.25 mg Q12HR PO 08/23/17 21:00 08/24/17 21:16 (Prinivil) 40 mg DAILY PO 08/23/17 14:15 08/24/17 09:55 (Imdur) 30 mg BID@0700,2100 PO 08/23/17 21:00 08/25/17 06:31 (Lasix Inj) 40 mg Q8HR IV PUSH 08/23/17 22:00 08/25/17 06:31 (Ecotrin Ec) 81 mg DAILY PO 08/24/17 09:00 08/24/17 09:56 (Lipitor) 20 mg DAILY PO 08/24/17 09:00 08/24/17 09:56 (Catapres) 0.1 mg Q4H PRN PO 08/23/17 17:15 08/24/17 20:08 (KCl) 20 meq Q12HR PO 08/24/17 21:00 08/24/17 21:16 (Tylenol) 650 mg Q4H PRN PO 08/24/17 15:15 08/24/17 21:17 Vital Signs / I&O Vital Signs Date Time Temp Pulse Resp B/P (MAP) Pulse Ox O2 Delivery O2 Flow Rate FiO2 08/25/17 08:32 97.9 61 18 147/84 (105) 96 08/25/17 08:00 66 08/25/17 07:00 72 08/25/17 06:00 62 08/25/17 05:00 58 08/25/17 04:00 64 08/25/17 03:25 66 16 151/79 (103) 94 08/25/17 03:00 66 08/25/17 02:00 77 08/25/17 01:00 62 08/25/17 00:00 60 08/24/17 23:42 69 16 132/75 (94) 93 08/24/17 23:00 69 08/24/17 22:00 74 08/24/17 21:13 79 16 163/89 (113) 95 08/24/17 21:00 68 08/24/17 20:00 78 08/24/17 20:00 97.9 72 16 176/92 (120) 96 08/24/17 19:00 65 08/24/17 18:00 65 08/24/17 17:00 80 08/24/17 16:12 97.8 64 16 159/80 (106) 97 08/24/17 16:00 76 08/24/17 15:00 66 08/24/17 14:00 73 08/24/17 12:00 64 08/24/17 11:57 97.6 65 18 143/92 (109) 95 08/24/17 11:00 65 08/24/17 10:00 72 08/24/17 09:00 74 I/O 08/24/17 08/24/17 08/24/17 08/25/17 08/25/17 08/25/17 07:00 15:00 23:00 07:00 15:00 23:00 Intake Total 480 ml 720 ml 240 ml Output Total 1275 ml 1250 ml 650 ml Balance -795 ml -530 ml -410 ml Intake Oral 480 ml 720 ml 240 ml Output Urine Total 1275 ml 1250 ml 650 ml # Voids 3 2 # Bowel Movements 0 Physical Exam GENERAL: SKIN: Warm and dry. HEAD: Atraumatic. Normocephalic. EYES: Pupils equal and round. No scleral icterus. No injection or drainage. ENT: No nasal bleeding or discharge. NECK: Trachea midline. No JVD. CARDIOVASCULAR: irregularly irregular rate and rhythm, II/ systolic murmur RESPIRATORY: No accessory muscle use. Clear to auscultation. Breath sounds equal bilaterally. GASTROINTESTINAL: Abdomen soft, non-tender, nondistended. MUSCULOSKELETAL: Extremities without clubbing, cyanosis, or edema. No obvious deformities. NEUROLOGICAL: Awake and alert. No obvious cranial nerve deficits. Normal speech. PSYCHIATRIC: Appropriate mood and affect; insight and judgment normal. Laboratory Laboratory Tests Test 08/24/17 11:29 08/25/17 03:46 Activated Partial Thromboplast Time 26.3 SEC White Blood Count 10.6 TH/MM3 Red Blood Count 3.95 MIL/MM3 Hemoglobin 12.3 GM/DL Hematocrit 36.9 % Mean Corpuscular Volume 93.4 FL Mean Corpuscular Hemoglobin 31.2 PG Mean Corpuscular Hemoglobin Concent 33.3 % Red Cell Distribution Width 14.2 % Platelet Count 198 TH/MM3 Mean Platelet Volume 10.1 FL Neutrophils (%) (Auto) 76.3 % Lymphocytes (%) (Auto) 12.3 % Monocytes (%) (Auto) 9.9 % Eosinophils (%) (Auto) 1.2 % Basophils (%) (Auto) 0.3 % Neutrophils # (Auto) 8.1 TH/MM3 Lymphocytes # (Auto) 1.3 TH/MM3 Monocytes # (Auto) 1.0 TH/MM3 Eosinophils # (Auto) 0.1 TH/MM3 Basophils # (Auto) 0.0 TH/MM3 CBC Comment DIFF FINAL Differential Comment Blood Urea Nitrogen 16 MG/DL Creatinine 0.91 MG/DL Random Glucose 103 MG/DL Calcium Level 8.2 MG/DL Sodium Level 141 MEQ/L Potassium Level 3.6 MEQ/L Chloride Level 103 MEQ/L Carbon Dioxide Level 30.5 MEQ/L Anion Gap 8 MEQ/L Estimat Glomerular Filtration Rate 79 ML/MIN (Karmen Crawford) Assessment and Plan Problem List: (1) Dyspnea ICD Codes: R06.00 - Dyspnea, unspecified Status: Acute (2) Hypertension ICD Codes: I10 - Essential (primary) hypertension Status: Acute (3) NSTEMI (non-ST elevated myocardial infarction) ICD Codes: I21.4 - Non-ST elevation (NSTEMI) myocardial infarction Status: Acute (4) HTN (hypertension) ICD Codes: I10 - Essential (primary) hypertension Status: Chronic (5) Paroxysmal A-fib ICD Codes: I48.0 - Paroxysmal atrial fibrillation Status: Chronic Assessment and Plan 87 yo WM with paroxysmal atrial fibrillation, HTN, HLD and mild-moderate aortic stenosis (2016 echo TWYLA 1.3cm, mean gradient 17mmHg) who presents with progressive dyspnea. CAD- C 08/24/17 shows mild-moderat nonobstructive CAD cont statin, asa, bb, ACEi no chest pain CHF- diuresing well, -940mL negative balance clinically improving creatinine stable salt avoidance change to furosemide 40mg qd and potassium 20mEq qd aortic stenosis- moderate, TWYLA 0.87cm, mean gradient 13mmHg afib- rate controlled, heparin will need to resume Eliquis mg BID upon discharge telemetry shows 2.6 sec pause and intermittent IVCD up to 5 beats HTN- needs better control, add amlodipine 5mg ok for discharge follow up with [facility] cardiology in 2 weeks (Karmen Crawford) Assessment and Plan CHF NSTEMI, demand ischemia with nonobstructive CAD by [facility] 08/24 CAD Afib, rate controlled intermittent short runs of IVCD HTN, uncontrolled moderate start Amlodipine 5mg daily and continue current medications upon d/c with lasix 40mg daily. d/c today with follow up Dr Bhatti within 2 weeks (Alejandro Flores DO) Problem Qualifiers (1) Dyspnea: Qualified Codes: R06.00 - Dyspnea, unspecified (2) Hypertension: Qualified Codes: I10 - Essential (primary) hypertension Karmen Crawford Aug 25, 2017 08:56 Alejandro Flores DO Aug 25, 2017 09:34
[2017-08-25] MEDS: ATORVASTATIN 20 MG TAB PO SCH (09:09)
[2017-08-25] MEDS: CARVEDILOL 6.25 MG TAB PO SCH (09:09)
[2017-08-25] MEDS: ASPIRIN EC 81 MG TABEC PO SCH (09:09)
[2017-08-25] MEDS: LISINOPRIL 20 MG TAB PO SCH (09:10)
[2017-08-25] MEDS: POTASSIUM CHLORIDE 20 MEQ CONTROLLED RELEASE TAB PO SCH (09:10)
[2017-08-25] MEDS ORDERED: AMLO5 PO (09:46)
[2017-08-25] MEDS ORDERED: CARV6.25 PO (09:46)
[2017-08-25] MEDS ORDERED: FURO1TAB60 PO (09:51)
[2017-08-25] MEDS ORDERED: POTA10TA2 PO (09:51)
--- NOTE | 2017-08-25 09:54 | HHI.DCPOC ---
Discharge Care Plan Diagnosis: (1) CHF (congestive heart failure) (2) HTN (hypertension) (3) Paroxysmal A-fib Goals to Promote Your Health * To prevent worsening of your condition and complications * To maintain your health at the optimal level Directions to Meet Your Goals Take your medications as prescribed Follow your dietary instruction Follow activity as directed Keep your appointments as scheduled Take your immunizations and boosters as scheduled If your symptoms worsen call your PCP, if no PCP go to Urgent Care Center or Emergency Room Smoking is Dangerous to Your Health. Avoid second hand smoke Call the 24-hour hour crisis hotline for domestic abuse at Danilo Quintanilla MD Aug 25, 2017 09:54
[2017-08-25] MEDS ORDERED: IOHEXOL 350 MG/ML 100 ML BTL (for Cath Lab) OTHER ONE (12:06)
== END 2017-08-25 12:07 | disposition home or self-care (01) | DRG 281 ==
LOC: NEPE 11:10 → NEDA 13:14 → HCIS 20:39
PROVIDERS: ADMIT Hospitalist; ATTEND Hospitalist
PROC: B2151ZZ Fluoroscopy of Left Heart using Low Osmolar Contrast (ICD-10-PCS; 2017-08-22)
PROC: B2111ZZ Fluoroscopy of Multiple Coronary Arteries using Low Osmolar Contrast (ICD-10-PCS; 2017-08-24)
PROC: 4A023N7 Measurement of Cardiac Sampling and Pressure, Left Heart, Percutaneous Approach (ICD-10-PCS; principal; 2017-08-24 10:00)
DX: I21.4 Non-ST elevation (NSTEMI) myocardial infarction (principal); I31.3 Pericardial effusion (noninflammatory); I47.2 Ventricular tachycardia; I50.9 Heart failure, unspecified; I11.0 Hypertensive heart disease with heart failure; I48.0 Paroxysmal atrial fibrillation; E78.5 Hyperlipidemia, unspecified; E03.9 Hypothyroidism, unspecified; I16.0 Hypertensive urgency; Q67.6 Pectus excavatum; I70.0 Atherosclerosis of aorta; E55.9 Vitamin D deficiency, unspecified; J45.909 Unspecified asthma, uncomplicated; I49.3 Ventricular premature depolarization; I25.10 Atherosclerotic heart disease of native coronary artery without angina pectoris; I35.0 Nonrheumatic aortic (valve) stenosis; Z87.891 Personal history of nicotine dependence
CPT/HCPCS: 71046; 80048; 80053; 80061; 82550; 83735; 84484; 85025; 85610; 85730; 93005; 93306; 93458; 99152; C1769; C1893; J1644; J1940; J2250; J3010; J3480; Q9967